=== PATIENT | female | born 1945 | race Caucasian/White ===

== ENCOUNTER 2025-08-27 10:38 | Emergency (ER) | payer OTHER, MEDICAID ==
[~2025-08-27] VITALS: Ht 162.6 cm; Wt 82.0 kg
[2025-08-27 10:42] VITALS: BP 160/82; PULSE 76; RESP 18; TEMP 36.8; O2SAT 99
== END 2025-08-27 12:22 | disposition left against medical advice (07) ==
LOC: ER 10:38 → CMPBEDREQ 13:13
DX: R07.2 Precordial pain (principal); R51.9 Headache, unspecified; I10 Essential (primary) hypertension; G30.9 Alzheimer's disease, unspecified; F02.80 Dementia in other diseases classified elsewhere, unspecified severity, without behavioral disturbance, psychotic disturbance, mood disturbance, and anxiety
CPT/HCPCS: 71045; 93005; 99283

== ENCOUNTER 2025-08-27 12:15 | Emergency (ER) | payer OTHER, MEDICAID ==
[~2025-08-27] VITALS: Ht 160 cm; Wt 70.0 kg
[2025-08-27 12:24] VITALS: O2SAT 99
[2025-08-27] MEDS ORDERED: DIPHENHYDRAMINE 50MG/ML VIAL IM ONE (12:45)
[2025-08-27] MEDS ORDERED: HALOPERIDOL LACTATE 5MG/ML VIAL IM ONE (12:45)
[2025-08-27 15:46] LABS: BASOPHILS % 0.2 % (0.0-2.0); EOSINOPHILS % 0.1 % (0.0-5.0); HEMATOCRIT. 38.9 % (36.0-48.0); HEMOGLOBIN. 12.5 g/dL (12.0-16.0); LYMPHOCYTES % 10.2 % (20.0-50.0); MEAN PLATELET VOLUME 7.8 fl (7.4-10.4); MONOCYTES % 7.3 % (2.0-8.0); NEUTROPHILS % 82.2 % (40.0-76.0); PLATELET 379 x1000/uL (130-400); RED BLOOD CELL COUNT 4.27 mill/uL (4.2-5.4); RED CELL DISTRIBUTION WIDTH 13.9 % (11.6-14.6)
[2025-08-27 15:59] LABS: INR 1.0
[2025-08-27 16:04] LABS: CREATININE 0.6 mg/dL (0.6-1.0); UREA NITROGEN BLOOD 18 mg/dL (9-23)
[2025-08-27 16:05] LABS: TROPONIN I HIGH SENSITIVITY 5 ng/L (3.0-34)
[2025-08-27 16:06] LABS: ASPARTATE AMINOTRANSFERASE 19 IU/L (<34); BILIRUBIN DIRECT < 0.1 mg/dL (<=3.0); BILIRUBIN TOTAL 0.3 mg/dL (0.1-1.0); PROTEIN TOTAL 7.9 g/dL (6.0-8.3)
[2025-08-27 19:27] VITALS: BP 171/76; PULSE 90; RESP 18; TEMP 36.7; O2SAT 99
== END 2025-08-27 19:36 | disposition short-term general hospital (02) ==
LOC: ER 12:15 → CMPBEDREQ 08-28 07:57
DX: G93.40 Encephalopathy, unspecified (principal); R07.9 Chest pain, unspecified; F03.911 Unspecified dementia, unspecified severity, with agitation; Z86.73 Personal history of transient ischemic attack (TIA), and cerebral infarction without residual deficits; Z79.899 Other long term (current) drug therapy
CPT/HCPCS: 36415; 80048; 80076; 80320; 82140; 84443; 84484; 85025; 99285; G0480